=== PATIENT | male | born 1960 | race Caucasian/White ===

== ENCOUNTER 2016-10-17 15:32 | Emergency (ER) | payer BC ==
[~2016-10-17] VITALS: Ht 177.8 cm; Wt 73.0 kg
[2016-10-17] MEDS ORDERED: TETANUS, DIPTHERIA, PERTUSSIS (ADACELL) VACCINE 0.5 ML VIAL IM ONE (16:05)
[2016-10-17] MEDS ORDERED: LIDOCAINE/EPINEPHRINE 1% 1:100,000 (XYLOCAINE) 30 ML VIAL INJ ONE (16:05)
[2016-10-17] MEDS ORDERED: LIDOCAINE/EPINEPHRINE 1%-1:100,000 (XYLOCAINE) 20ML VIAL INJ ONE (16:05)
[2016-10-17 16:35] VITALS: BP 148/94
== END 2016-10-17 16:36 | disposition home or self-care (01) ==
LOC: ED 15:33
DX: S01.81XA Laceration without foreign body of other part of head, initial encounter (principal); S51.811A Laceration without foreign body of right forearm, initial encounter; S50.11XA Contusion of right forearm, initial encounter; W20.8XXA Other cause of strike by thrown, projected or falling object, initial encounter; Y93.89 Activity, other specified; Y92.59 Other trade areas as the place of occurrence of the external cause; Y99.0 Civilian activity done for income or pay
CPT/HCPCS: 12011; 12013; 90471; 90715; 99282; 99283